=== PATIENT | male | born 1960 | race Caucasian/White ===

== ENCOUNTER 2023-08-10 11:59 | Emergency (ER) | payer MEDICAID ==
[~2023-08-10] VITALS: Ht 182.9 cm; Wt 83.6 kg
[2023-08-10 13:21] VITALS: BP 122/80; PULSE 100; RESP 18; TEMP 98.3; O2SAT 96
[2023-08-10] MEDS ORDERED: CEPH500C PO (13:25)
[2023-08-10] MEDS ORDERED: BACDST PO (13:25)
== END 2023-08-10 13:32 | disposition home or self-care (01) ==
LOC: ER 11:59
DX: S30.861A Insect bite (nonvenomous) of abdominal wall, initial encounter (principal); Z79.899 Other long term (current) drug therapy; W57.XXXA Bitten or stung by nonvenomous insect and other nonvenomous arthropods, initial encounter; Y93.89 Activity, other specified; Y92.89 Other specified places as the place of occurrence of the external cause; Y99.8 Other external cause status

== ENCOUNTER 2023-08-13 15:51 | Emergency (ER) | payer MEDICAID ==
[~2023-08-13 15:51] MED LIST: BACDST PO; CEPH500C PO
== END 2023-08-13 16:10 | disposition left against medical advice (07) ==
LOC: ER 15:51
DX: Z00.8 Encounter for other general examination (principal); Z53.21 Procedure and treatment not carried out due to patient leaving prior to being seen by health care provider

== ENCOUNTER 2023-08-13 18:33 | Emergency (ER) | payer MEDICAID ==
[~2023-08-13] VITALS: Ht 182.9 cm; Wt 87.2 kg
[2023-08-13 19:31] VITALS: BP 131/87; PULSE 110; RESP 16; O2SAT 97
== END 2023-08-13 22:18 | disposition left against medical advice (07) ==
LOC: ER 18:33
DX: Z48.00 Encounter for change or removal of nonsurgical wound dressing (principal); Z53.21 Procedure and treatment not carried out due to patient leaving prior to being seen by health care provider